=== PATIENT | male | born 1995 | race Hispanic/Latino ===

== ENCOUNTER 2018-02-19 15:12 | Emergency (ER) | payer OTHER, SELFPAY ==
[2018-02-19] MEDS ORDERED: KETOROLAC 30 MG/ML INJ ONE (16:37)
--- NOTE | 2018-02-19 16:42 | ER ---
Nurse's Notes [facility] Name: nAthony Blanco Age: 22 yrs Sex: Male : 1995 Arrival Date: 02/19/2018 Time: 15:15 Bed 24 Private MD: None, None Diagnosis: Pain in right shoulder Presentation: 02/19 15:17 Presenting complaint: Patient states: Right shoulder pain that started last night after aj "diving for a ball while playing men's softball". Transition of care: patient was not received from another setting of care. Onset of symptoms was February 18, 2018. Initial Sepsis Screen: Does the patient meet any 2 criteria? No. Patient's initial sepsis screen is negative. Does the patient have a suspected source of infection? No. Patient's initial sepsis screen is negative. Care prior to arrival: None. 15:17 Method Of Arrival: Ambulatory aj 15:17 Acuity: JENNY 4 aj Triage Assessment: 15:19 General: Appears in no apparent distress. comfortable, Behavior is calm, cooperative, aj appropriate for age. Pain: Complains of pain in anterior aspect of right shoulder. Neuro: Level of Consciousness is awake, alert, obeys commands, Oriented to person, place, time, situation, Appropriate for age. Respiratory: Airway is patent Respiratory effort is even, unlabored, Respiratory pattern is regular, symmetrical. Derm: Skin is intact, is healthy with good turgor, Skin is pink, warm \\T\\ dry. normal. Musculoskeletal: Reports pain in anterior aspect of right shoulder and posterior aspect of right shoulder. Historical: - Allergies: 15:19 No Known Allergies; - Home Meds: 15:19 None [Active]; - PMHx: 15:19 None; - PSHx: 15:19 None; aj - Immunization history:: Adult Immunizations up to date. - Social history:: Smoking status: Patient uses tobacco products, denies chronic smoking, but will smoke occasionally. Screenin:25 Abuse screen: Denies threats or abuse. Denies injuries from another. Nutritional kr2 screening: No deficits noted. Tuberculosis screening: No symptoms or risk factors identified. Fall Risk None identified. Assessment: 15:25 General: Appears in no apparent distress. comfortable, well groomed, well developed, kr2 well nourished, Behavior is calm, cooperative, appropriate for age. Pain: Complains of pain in right shoulder Pain radiates to right arm Pain currently is 0 out of 10 on a pain scale. at worst was 8 out of 10 on a pain scale. Quality of pain is described as sharp, shooting, Pain began last night Is intermittent, Alleviated by rest, Aggravated by lifting arm. Neuro: Level of Consciousness is awake, alert, obeys commands, Oriented to person, place, time, situation. Neuro: Intact. Cardiovascular: Capillary refill < 3 seconds in bilateral fingers Patient's skin is warm and dry. Respiratory: Airway is patent Respiratory effort is even, unlabored, Respiratory pattern is regular, symmetrical. GI: Abdomen is flat, non-distended. : No signs and/or symptoms were reported regarding the genitourinary system. EENT: Oral mucosa is moist. Derm: Skin is intact, is healthy with good turgor, Skin is pink, warm \\T\\ dry. Musculoskeletal: Circulation, motion, and sensation intact. Injury Description: Patient states he fell on his shoulder last night playing soft ball. States he felt a "pop". 16:30 Reassessment: Patient appears in no apparent distress at this time. Patient and/or kr2 family updated on plan of care and expected duration. Pain level reassessed. Patient is alert, oriented x 3, equal unlabored respirations, skin warm/dry/pink. Patient states symptoms have improved. 17:33 Reassessment: Patient appears in no apparent distress at this time. Patient and/or kr2 family updated on plan of care and expected duration. Pain level reassessed. Patient is alert, oriented x 3, equal unlabored respirations, skin warm/dry/pink. Patient states symptoms have improved. Vital Signs: 15:19 BP 129 / 67; Pulse 60; Resp 16; Temp 98.0; Pulse Ox 99% on R/A; Weight 81.65 kg; Height aj 5 ft. 10 in. (177.80 cm); Pain 9/10; 15:57 BP 136 / 72; Pulse 60; Resp 15; Pulse Ox 100% on R/A; kr2 17:33 BP 130 / 70; Pulse 62; Resp 16; Pulse Ox 100% on R/A; kr2 15:19 Body Mass Index 25.83 (81.65 kg, 177.80 cm) ED Course: 15:15 Patient arrived in ED. mr 15:15 None, None is Private Physician. mr 15:18 Triage completed. aj 15:19 Arm band placed on left wrist. Patient placed in an exam room. aj 15:20 Giovanna Cartagena, RN is Primary Nurse. kr2 15:25 Patient has correct armband on for positive identification. Bed in low position. Call kr2 light in reach. Side rails up X 1. Adult w/ patient. Pulse ox on. NIBP on. Door closed. Head of bed elevated. 15:26 Sachi Clemens FNP-C is [facility]. snw 15:26 Jimbo Landin MD is Attending Physician. snw 15:52 X-ray completed. Portable x-ray completed in exam room. Patient tolerated procedure ml well. 15:53 Shoulder Right (2 View) XRAY In Process Unspecified. EDMS 17:00 Sling applied to right arm. kr2 17:19 No provider procedures requiring assistance completed. Patient did not have IV access kr2 during this emergency room visit. Administered Medications: 16:41 Drug: TORadol 60 mg Route: IM; Site: right gluteus; kr2 17:18 Follow up: Response: No adverse reaction; Pain is decreased kr2 Outcome: 16:41 Discharge ordered by MD. snw 17:19 Discharged to home ambulatory, with family. kr2 17:19 Condition: good 17:19 Discharge instructions given to patient, family, Instructed on discharge instructions, follow up and referral plans. Demonstrated understanding of instructions, follow-up care. 17:34 Patient left the ED. kr2 Signatures: Dispatcher [employer] Nina Rodriguez, RN Sachi Mahan FNP-C FNP-Donnell Dinora Soriano Micheline Boothe Giovanna Cartagena, RN RN kr2
--- NOTE | 2018-02-19 16:42 | EDPHYS ---
Physician Documentation [facility] Name: Anthony Blanco Age: 22 yrs Sex: Male : 1995 Arrival Date: 02/19/2018 Time: 15:15 Bed 24 Private MD: None, None ED Physician Jimbo Landin HPI: 02/19 15:43 This 22 yrs old Male presents to ER via Ambulatory with complaints of Shoulder snw Injury. 15:43 The patient or guardian complains of a crush injury, fell onto right shoulder. right snw shoulder. Context: resulted from a fall, playing sports, softball, The patient experiences decreased range of motion, The patient reports no obvious deformity. Onset: The symptoms/episode began/occurred suddenly, last night. Associated signs and symptoms: Pertinent positives: pain and decreased ROM. Severity of symptoms: At their worst the symptoms were moderate. The patient has not experienced similar symptoms in the past. The patient has not recently seen a physician. Historical: - Allergies: 15:19 No Known Allergies; aj - Home Meds: 15:19 None [Active]; aj - PMHx: 15:19 None; aj - PSHx: 15:19 None; aj - Immunization history:: Adult Immunizations up to date. - Social history:: Smoking status: Patient uses tobacco products, denies chronic smoking, but will smoke occasionally. ROS: 15:43 Constitutional: Negative for fever, chills, and weight loss, Eyes: Negative for injury, snw pain, redness, and discharge, ENT: Negative for injury, pain, and discharge, Neck: Negative for injury, pain, and swelling, Cardiovascular: Negative for chest pain, palpitations, and edema, Respiratory: Negative for shortness of breath, cough, wheezing, and pleuritic chest pain, Abdomen/GI: Negative for abdominal pain, nausea, vomiting, diarrhea, and constipation, Back: Negative for injury and pain, : Negative for injury, bleeding, discharge, and swelling, Skin: Negative for injury, rash, and discoloration, Neuro: Negative for headache, weakness, numbness, tingling, and seizure. 15:43 MS/extremity: Positive for injury or acute deformity, contusion, decreased range of motion, pain, of the anterior aspect of right shoulder. Exam: 15:43 Constitutional: This is a well developed, well nourished patient who is awake, alert, snw and in no acute distress. Head/Face: Normocephalic, atraumatic. Eyes: Pupils equal round and reactive to light, extra-ocular motions intact. Lids and lashes normal. Conjunctiva and sclera are non-icteric and not injected. Cornea within normal limits. Periorbital areas with no swelling, redness, or edema. ENT: Nares patent. No nasal discharge, no septal abnormalities noted. Tympanic membranes are normal and external auditory canals are clear. Oropharynx with no redness, swelling, or masses, exudates, or evidence of obstruction, uvula midline. Mucous membranes moist. Neck: Trachea midline, no thyromegaly or masses palpated, and no cervical lymphadenopathy. Supple, full range of motion without nuchal rigidity, or vertebral point tenderness. No Meningismus. Chest/axilla: Normal chest wall appearance and motion. Nontender with no deformity. No lesions are appreciated. Cardiovascular: Regular rate and rhythm with a normal S1 and S2. No gallops, murmurs, or rubs. Normal PMI, no JVD. No pulse deficits. Respiratory: Lungs have equal breath sounds bilaterally, clear to auscultation and percussion. No rales, rhonchi or wheezes noted. No increased work of breathing, no retractions or nasal flaring. Abdomen/GI: Soft, non-tender, with normal bowel sounds. No distension or tympany. No guarding or rebound. No evidence of tenderness throughout. Back: No spinal tenderness. No costovertebral tenderness. Full range of motion. Skin: Warm, dry with normal turgor. Normal color with no rashes, no lesions, and no evidence of cellulitis. Neuro: Awake and alert, GCS 15, oriented to person, place, time, and situation. Cranial nerves II-XII grossly intact. Motor strength 5/5 in all extremities. Sensory grossly intact. Cerebellar exam normal. Normal gait. Psych: Awake, alert, with orientation to person, place and time. Behavior, mood, and affect are within normal limits. 15:43 Musculoskeletal/extremity: Extremities: grossly normal except: ROM: limited active range of motion, in the right shoulder, limited active range of motion due to pain, Circulation is intact in all extremities. Sensation intact. Compartment Syndrome exam of affected extremity: is normal. Joints: All joints are normal except the right shoulder displays limited range of motion, painful range of motion. Vital Signs: 15:19 BP 129 / 67; Pulse 60; Resp 16; Temp 98.0; Pulse Ox 99% on R/A; Weight 81.65 kg; Height aj 5 ft. 10 in. (177.80 cm); Pain 9/10; 15:57 BP 136 / 72; Pulse 60; Resp 15; Pulse Ox 100% on R/A; kr2 17:33 BP 130 / 70; Pulse 62; Resp 16; Pulse Ox 100% on R/A; kr2 15:19 Body Mass Index 25.83 (81.65 kg, 177.80 cm) aj MDM: 15:29 Patient medically screened. snw 16:43 Data reviewed: vital signs, nurses notes. Data interpreted: Pulse oximetry: on room air snw is 100 %. Interpretation: normal. Counseling: I had a detailed discussion with the patient and/or guardian regarding: the historical points, exam findings, and any diagnostic results supporting the discharge/admit diagnosis, radiology results, the need for outpatient follow up, to return to the emergency department if symptoms worsen or persist or if there are any questions or concerns that arise at home. Special discussion: I have referred the patient to see his PCP for further evaluation of high blood pressure. Based on the history and exam findings, there is no indication for further emergent testing or inpatient evaluation. I discussed with the patient/guardian the need to see the orthopedic surgeon for further evaluation of the symptoms. I discussed with the patient/guardian the need to see the primary care provider for further evaluation of the symptoms. 02/19 15:32 Order name: Shoulder Right (2 View) XRAY kr2 02/19 16:42 Order name: Sling; Complete Time: 17:18 snw Administered Medications: 16:41 Drug: TORadol 60 mg Route: IM; Site: right gluteus; kr2 17:18 Follow up: Response: No adverse reaction; Pain is decreased kr2 Disposition: 02/19/18 16:41 Discharged to Home. Impression: Pain in right shoulder. - Condition is Stable. - Discharge Instructions: Arthralgia, Shoulder Pain, Arm Sling Use, [id number], Cryotherapy, [id number], Heat Therapy. - Prescriptions for Diclofenac Sodium 75 mg Oral Tablet Sustained Release - take 1 tablet by ORAL route 2 times per day; 30 tablet. orphenadrine citrate 100 mg Oral Tablet Sustained Release - take 1 tablet by ORAL route 2 times per day As needed; 20 tablet. - Medication Reconciliation Form, Thank You Letter, Antibiotic Education, Prescription Opioid Use, Work release form form. - Follow up: Private Physician; When: 2 - 3 days; Reason: Recheck today's complaints, Continuance of care, Re-evaluation by your physician. Follow up: Emergency Department; When: As needed; Reason: Worsening of condition. Addendum: 02/21/2018 06:43 Co-signature as Attending Physician, Jimbo Landin MD I agree with the assessment and w a plan of care. Signatures: Dispatcher [employer] Nina Rodriguez, PHYLLIS RN Sachi Fitzgerald, ON AIR HOST-C ON AIR HOST-Csnw Jimbo Landin MD MD wa Reaves, Karey, RN RN kr2 Corrections: (The following items were deleted from the chart) 02/19 17:34 16:41 02/19/2018 16:41 Discharged to Home. Impression: Pain in right shoulder. kr2 Condition is Stable. Forms are Medication Reconciliation Form, Thank You Letter, Antibiotic Education, Prescription Opioid Use. Follow up: Private Physician; When: 2 - 3 days; Reason: Recheck today's complaints, Continuance of care, Re-evaluation by your physician. Follow up: Emergency Department; When: As needed; Reason: Worsening of condition. snw
--- NOTE | 2018-02-19 17:38 | RAD REPORT ---
EXAM DESCRIPTION: RAD - Shoulder Right 2 View - 02/19/2018 3:55 pm CLINICAL HISTORY: Right shoulder pain status post fall FINDINGS: No fracture or dislocation is seen.
[2018-02-19 17:39] VITALS: TEMP 98
[2018-02-19 17:40] VITALS: O2SAT 100
[2018-02-19 17:41] VITALS: BP 130/70
== END 2018-02-19 17:34 | disposition home or self-care (01) ==
LOC: ER 15:12
DX: M25.511 Pain in right shoulder (principal); W18.30XA Fall on same level, unspecified, initial encounter; Y93.64 Activity, baseball; Y92.328 Other athletic field as the place of occurrence of the external cause
CPT/HCPCS: 96372; 99284